=== PATIENT | male | born 1995 ===

== ENCOUNTER 2023-03-09 12:41 | Outpatient (REF) | payer MEDICAID, OTHER, SELFPAY ==
[2023-03-09 16:48] LABS: Estimated Glomerular Filt Rate > 60
[2023-03-10 08:30] LABS: ~HepC Num1 0.07 S/CO (0.00-0.79); ~Hepatitis C Antibody Nonreactive (Nonreactive)
[2023-03-12 16:33] LABS: HIV RNA PCR Qn Copies NOT DETECTED copies/mL (NOT DETECTED); HIV RNA PCR Qn Log Copies NOT DETECTED (NOT DETECTED)
== END 2023-03-09 12:42 | disposition home or self-care (01) ==
LOC: HO.HHCL 12:41
PROVIDERS: Visit Provider Nurse Practitioner Primary Care
DX: Z11.3 Encounter for screening for infections with a predominantly sexual mode of transmission (principal)
CPT/HCPCS: 36415; 82565; 86803; 87536

== ENCOUNTER 2023-06-15 12:10 | Outpatient (REF) | payer MEDICAID, OTHER, SELFPAY ==
[2023-06-15 14:04] LABS: Alanine Aminotransferase 27 U/L (0-40); Albumin Level 4.7 g/dL (3.5-5.0); Alkaline Phosphatase 89 U/L (39-117); Anion Gap 14 (12-20); Aspartate Amino Transferase 29 U/L (5-37); Bilirubin Direct 0.2 mg/dL (0.0-0.5); Bilirubin Total 1.1 mg/dL (0.0-1.0); Blood Urea Nitrogen 13 mg/dL (9-16); Calcium 8.8 mg/dL (8.4-10.2); Carbon Dioxide 26 mmol/L (22-29); Chloride 104 mmol/L (96-108); Cholesterol 242 mg/dL (<200); Estimated Glomerular Filt Rate > 60; Glucose Random 94 mg/dL (60-115); HDL Cholesterol 37 mg/dL (>40); LDL Cholesterol Calculated 153 mg/dL (<100); Potassium 4.4 mmol/L (3.3-5.1); Sodium 140 mmol/L (135-145); Total Protein 8.3 g/dL (6.5-8.0); Triglycerides 262 mg/dL (<150)
[2023-06-15 14:13] LABS: HIV AB/AG Nonreactive (Nonreactive); HIV Num 1 0.07 S/CO (0.00-0.99)
== END 2023-06-15 12:11 | disposition home or self-care (01) ==
LOC: HO.HHCL 12:10
PROVIDERS: Visit Provider Nurse Practitioner Primary Care
DX: F64.9 Gender identity disorder, unspecified (principal); E78.5 Hyperlipidemia, unspecified; Z79.899 Other long term (current) drug therapy
CPT/HCPCS: 36415; 80048; 80061; 80076; 87389

== ENCOUNTER 2025-04-13 09:58 | Emergency (ER) | payer OTHER, SELFPAY ==
--- NOTE | ~2025-04-13 | CT_ITS ---
EXAMINATION: CT ABDOMEN AND PELVIS WITH CONTRAST CLINICAL INFORMATION: Diarrhea, fevers, bloody stool, diffuse abdominal pain. COMPARISON: None available. TECHNIQUE: Multidetector volumetric images were obtained from the superior aspect of the liver through the pubic symphysis following administration 65 mL of Omnipaque 350 intravenous contrast. Sagittal and coronal reformatted images were obtained on the technologist's workstation. Oral contrast: No This CT examination was performed using dose optimization techniques as appropriate, variously including the following: *Automated exposure control *Adjustment of mA and/or kV according to patient size (this includes techniques or standardized protocols for targeted exams where dose is matched to indication/reason for exam; i.e. extremities or head) *Use of iterative reconstruction technique FINDINGS: LUNG BASES: The imaged lung bases are clear bilaterally. Heart size is normal. There are no effusions. LIVER, GALLBLADDER, AND BILIARY TREE: The liver is normal in size, shape, and attenuation. No focal hepatic lesion or biliary ductal dilatation is present. The gallbladder is unremarkable with no evidence of radiopaque gallstones, gallbladder wall thickening, or obvious pericholecystic inflammatory changes. PANCREAS: Unremarkable. SPLEEN: Unremarkable. ADRENAL GLANDS: Unremarkable. KIDNEYS AND URETERS: The kidneys are normal in size, shape, and attenuation. No hydronephrosis, hydroureter, or calculi seen. No perinephric stranding. BLADDER: Unremarkable. GASTROINTESTINAL TRACT: Diffuse wall thickening and mild inflammation of fairly large segment of mid and distal small bowel extending to the ileocecal valve, consistent with enteritis. This likely infectious or inflammatory. No definite involvement of the colon which appears normal in course and caliber. No rectal abnormality evident. There is no CT evidence of acute appendicitis. Stomach is mildly decompressed. It appears grossly normal. The duodenal sweep appears normal. The jejunum appears normal. PERITONEUM: There is trace free fluid in the pelvis. There is no free air. ABDOMINAL WALL: No hernia identified. There are breasts implants in place. No evidence of complication. LYMPH NODES: There is no abnormal lymphadenopathy present. VASCULAR: Normal. PELVIC VISCERA: The prostate and seminal vesicles are unremarkable. OSSEOUS STRUCTURES: There is no suspicious lytic or blastic bone lesion. Normal appearance. The SI joints appear normal. CT/CT abdomen pelvis w IV con IMPRESSION: 1. Wall thickening and inflammation of the mid and distal small bowel consistent with long segment enteritis. This is likely infectious or inflammatory. 2. There is trace ascites in the pelvis. Electronically signed by: Regan Webb MD 04/13/2025 01:36 PM EDT
[2025-04-13 10:06] VITALS: BP 126/73; PULSE 78; RESP 16; TEMP 36.6; O2SAT 97; BMI 36.0
--- NOTE | 2025-04-13 11:01 | ED_ITS ---
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 They note yesterday diarrhea with some blood in it and and then another episode today. She states this has never happened before, she has no medical problems, no recent travel and no abx use. She states her pain this AM is much more severe. She denies ETOH or drug use. MD elicited complaint: abdominal pain Pertinent past history: none Onset (ago): day(s) (Wednesday) Pain Consistency: constant Location: epigastric Severity: severe Quality: stabbing Radiation: suprapubic Migration to: no migration Exacerbating factors: eating, bowel movement and movement Relieving factors: nothing Context: possible food poisoning Associated symptoms: nausea, vomiting, diarrhea, chills and hematochezia Related Data Previous Rx's ?Medication ?Instructions ?Recorded hydrocodone 5 mg-acetaminophen 325 1 tab PO Q6H PRN pa in #10 tabs 04/13/25 mg tablet ondansetron 4 mg disintegrating 4 mg PO Q8H PRN nausea and 04/13/25 tablet vomiting #20 tabs Allergies Allergy/AdvReac Type Severity Reaction Status Date / Time No Known Allergies Allergy Verified 04/13/25 10:06 Review of Systems Review of Systems Constitutional : No Weight loss, No Fever, pos Chills ENT/Mouth : No sore throat, No Rhinorrhea Eyes: No Swelling, No Redness Cardiovascular : No Chest Pain, No SOB, NoEdema Respiratory : No Cough, No Sputum, No Wheezing Gastrointestinal : Positive Nausea, Positive Vomiting, positive Diarrhea, positive abdominal Pain, pos Hematochezia, No Melena Genitourinary : No Dysuria, No Urinary Frequency, No Hematuria, No Urgency Musculoskeletal : No joint pain, No Myalgias, No Joint Swelling Skin : No Skin Lesions, No rash Neuro : No Weakness, No Numbness, No Dizziness, No Headache All other systems reviewed and are negative. [facility] Past Medical History Attestation statement: The following information was validated with the patient. Source: old records reviewed Medical History [id number] transgender person Social History Social History (Updated 04/13/25 @ 12:09 by Roxanne Jimenez DO) Patient Tobacco Use Status: Never used Tobacco Advance Directives: No Advance Directives Information Provided: Yes Physical Exam ED Vital Signs: Vital Signs - 24 hr 04/13/25 10:06 04/13/25 11:25 04/13/25 11:28 Temperature 97.8 F 98.0 F Pulse Rate 78 70 Respiratory Rate 16 18 16 Blood Pressure 126/73 120/66 Pulse Oximetry 97 97 Oxygen Delivery Method Room Air Room Air 04/13/25 12:00 Temperature 98.0 F Pulse Rate 70 Respiratory Rate 16 Blood Pressure 120/66 Pulse Oximetry 97 Oxygen Delivery Method Room Air BMI result Body Mass Index 36.0 Appearance: Alert. Oriented X3. No acute distress. Eyes: Pupils equal, round and reactive to light. ENT: Pharynx normal. Neck: Normal inspection. Neck supple. CVS: Normal heart rate and rhythm. Pulses normal. Respiratory: No respiratory distress. Breath sounds normal. Abdomen: Soft and moderate diffuse ttp but no rebound Skin: Skin warm and dry. Normal skin color. Extremities: No lower extremity edema. Neuro: Oriented X 3. No motor deficit. No sensory deficit Medical Decision Making Medical Decision Making [facility] Narrative: 30 yo patient otherwise healthy not immunocompromised, no recent travel or abx use, who ate food and then that night started with pain, nausea, with increasing daily pain and 2 episodes of bloody diarrhea other than food exposure no risk factors. Will hydrate, treat with IV morphine for pain, CT scan for colitis. Possible food toxicity, colitis, viral syndrome, PUD, gastritis, pancreatitis. Differential Diagnosis Differential Diagnoses: The differential diagnosis associated with the presentation includes colitis, viral syndrome, food poisoning, gastritis Admission/Observation Consideration of admission/observation: Escalation of care including admission/observation considered VS and labs stable symptoms resolved feels much better will treat as self limiting enteritis given reasons to return Lab Data [facility] Lab Attestation statement: I reviewed the patient's lab results. 04/13/25 11:20 04/13/25 11:20 Labs: Lab Results 04/13/25 Range/Units 11:20 WBC 9.1 (4.8-10.8) X10*3/uL RBC 5.18 (4.60-5.80) X10*6/uL Hgb 15.5 (14.0-18.0) g/dl Hct 45.8 (42.0-52.0) % MCV 88.4 (80.0-98.0) fL MCH 29.9 (27.0-33.0) pg MCHC 33.8 (31.0-36.0) g/dl RDW 12.4 (11.0-16.0) % Plt Count 328 (160-400) X10*3/uL MPV 9.9 (9.4-12.4) fL Immature Gran % (Auto) 0.2 (0.0-0.4) % Neut % (Auto) 82.4 H (45-73) % Lymph % (Auto) 7.7 L (20-40) % [place] % (Auto) 9.4 (2-11) % Eos % (Auto) 0.1 (0-4) % Baso % (Auto) 0.2 (0-2) % Lymph # (Auto) 0.7 L (1.2-4.9) X10*3/uL [place] # (Auto) 0.9 (0.1-1.2) X10*3/uL Eos # (Auto) 0.0 (0.0-0.4) X10*3/uL Baso # (Auto) 0.0 (0.0-0.2) X10*3/uL Abs Immat Gran (auto) 0.02 (0.00-0.03) X10*3/uL Absolute Neuts (auto) 7.5 (2.0-8.3) x10*3/uL Absolute Nucleated RBC 0.000 (0.0-0.012) X10*3/uL Nucleated RBC % (auto) 0.0 (0.0-0.2) /100WBC Sodium 140 (135-145) mmol/L Potassium 3.8 (3.3-5.1) mmol/L Chloride 104 (96-108) mmol/L Carbon Dioxide 25 (22-29) mmol/L Anion Gap 15 (12-20) BUN 13 (9-16) mg/dL Creatinine 1.08 (0.5-1.4) mg/dL Estim Creat Clear Calc 99.5 Estimated GFR > 60 Random Glucose 110 (60-115) mg/dL Calcium 9.2 (8.4-10.2) mg/dL Magnesium 2.1 (1.6-2.6) mg/dL Total Bilirubin 0.7 (0.0-1.0) mg/dL Direct Bilirubin 0.2 (0.0-0.5) mg/dL AST 24 (5-37) U/L ALT 24 (0-40) U/L Alkaline Phosphatase 72 (39-117) U/L Total Protein 7.8 (6.5-8.0) g/dL Albumin 4.8 (3.5-5.0) g/dL Lipase 27 (8-78) U/L Independent Interpretation I performed an independent interpretation of an: CT Scan Radiology Impression Discussion of test interpretation with radiology: I have reviewed the radiologist's reading. Prescription Management I considered prescription management with: Pain Medication and Other Medications Administered Discontinued Medications Generic Name Dose Route Start Last Admin Trade Name Brandi PRN Reason Stop Dose Admin Lactated Ringer's 1,000 mls @ 999 mls/hr 04/13/25 11:00 04/13/25 13:15 Lr IV 04/13/25 12:00 Infused .Q1H1M ONE Infusion Iohexol 100 ml 04/13/25 12:55 04/13/25 12:56 Iohexol 350 Mg/Ml 100 Ml Infus..Btl IV 04/13/25 12:56 85 ml ONCE ONE Administration Morphine Sulfate 4 mg 04/13/25 11:08 04/13/25 11:25 Morphine Sulfate 4 Mg/Ml Cartridge IVPUSH 04/13/25 11:09 4 mg ONCE ONE Administration Protocol Ondansetron HCl 4 mg 04/13/25 11:00 04/13/25 11:24 Ondansetron Hcl 4 Mg/2 Ml Vial IVPUSH 04/13/25 11:01 4 mg ONCE ONE Administration Discharge Plan Discharge Clinical Impression: Nausea vomiting and diarrhea, Bright red rectal bleeding Abdominal pain Qualifiers: Abdominal location: generalized Qualified Code(s): R10.84 - Generalized abdominal pain Instructions: Rectal Bleeding (ED), Acute Nausea and Vomiting (ED), Acute Diarrhea (ED), Abdominal Pain (ED) Additional Instructions: bland diet for 48 hours clear liquids then advance very slowly no motrin, aleve, aspirin, ibuprofen stay hydrated return for fevers, worsening pain, bloody stools, or any other concerns Prescriptions: New hydrocodone-acetaminophen 5-325 mg tablet 1 tab PO Q6H PRN (Reason: pain) Qty: 10 0RF Rx Instructions: partial fill okay; Partial Fill upon patient request. ondansetron 4 mg tablet,disintegrating 4 mg PO Q8H PRN (Reason: nausea and vomiting) Qty: 20 0RF Stand Alone Forms: Work/School Release Print Language: Moldovan
[2025-04-13] MEDS: Lactated Ringers 1,000 ML 999 ML IV (11:24)
[2025-04-13 11:25] VITALS: RESP 18
[2025-04-13 11:27] LABS: MANUAL DIFF FLAG NO
[2025-04-13 11:28] VITALS: BP 120/66; PULSE 70; RESP 16; TEMP 36.7; O2SAT 97
[2025-04-13 11:35] LABS: Hematocrit 45.8 % (42.0-52.0); Hemoglobin 15.5 g/dl (14.0-18.0); Imm Gran Abs Auto 0.02 X10*3/uL (0.00-0.03); Imm Gran Pct Auto 0.2 % (0.0-0.4); Lymphocytes Absolute Auto 0.7 X10*3/uL (1.2-4.9); Mean Corpuscular HGB Conc 33.8 g/dl (31.0-36.0); Mean Corpuscular Hemoglobin 29.9 pg (27.0-33.0); Mean Corpuscular Volume 88.4 fL (80.0-98.0); NRBC Abs Auto 0.000 X10*3/uL (0.0-0.012); NRBC Pct Auto 0.0 /100WBC (0.0-0.2); Platelet Count 328 X10*3/uL (160-400); Red Blood Count 5.18 X10*6/uL (4.60-5.80); White Blood Count 9.1 X10*3/uL (4.8-10.8)
--- OUTSIDE RECORDS SUMMARY | 2025-04-13 11:35 | XMS_ITS | Encounter Summary ---
Author Organization [employer] Address [address] [facility] 7t [place] [address] Care Team Providers Care Maintenance Planner Name Role Phone Donna Mathias Primary Care Provider [phone] Reason for Visit * Reason Comments Med Refill Encounter Details Date Type Department Care Team (Late st Contact Info) Description 03/16/2023 Refill [facility] [address] [place] [address] Lulú Bañuelos CNM [address] [place], [place] [phone] Gender identity disorder Social History Tobacco Use Types Packs/Day Years Used Date Smoking Tobacco: Every Day Cigarettes Smokeless Tobacco: Never Alcohol Use Standard Drinks/Week Comments Yes 0 (1 standard drink = 0.6 oz pur e alcohol) Depression Answer Date Recorded Patient Health Questionnaire-9 Score 0 10/22/2022 Depression Answer Date Recorded Patient Health Questionnaire-2 Score 0 10/22/2022 Sex and Gender Information Value Date Recorded Sex Assigned at Male 06/15/2022 10:37 AM EDT Legal Sex Other 06/15/2022 10:37 AM EDT Gender Identity Transgender Female 06/15/2022 10 :37 AM EDT Sexual Orientation Something else 06/15/2022 10 :37 AM EDT documented as of this encounter Plan of Treatment Not on file documented as of this encounter Visit Diagnoses Diagnosis Gender identity disorder Gender identity disorder in children documented in this encounter Additional Health Concerns Assessment Noted Time PHQ-9 Depression Total Score: 0 10/23/19 23 10:50 AM EST documented as of this encounter Care Teams Maintenance Planner Relationship Specialty Start Date End Date Donna Mathias ANP [address] [place] [address] PCP - General Family Medicine 10/30/20 documented as of this encounter
--- OUTSIDE RECORDS SUMMARY | 2025-04-13 11:35 | XMS_ITS | Encounter Summary ---
Author Organization [employer] Address [address] [facility] [address] [place] [address] Care Team Providers Care Auxiliary Equipment Operator Name Role Phone Donna Mathias Primary Care Provider [phone] Reason for Visit * Reason Onset Date Comments Nurse Triage 04/13/2025 Encounter Details Date Type Department Care Team ([facility] st Contact Info) Description 04/13/2025 Telephone [facility] [address] [place] [address] Donna Mathias ANP [address] [place] [address] Nurse Triage Social History Tobacco Use Types Packs/Day Years Used Date Smoking Tobacco: Every Day Cigarettes Smokeless Tobacco: Never Alcohol Use Standard Drinks/Week Comments Yes 0 (1 standard drink = 0.6 oz pur e alcohol) Depression Answer Date Recorded Patient Health Questionnaire-9 Score 0 10/22/2022 Housing Stability Answer Date Recorded What is your housing situation today? I have rudy khan 05/31/[address] you li ve. Do you have problems with any of the following? None of the above 05/31/2023 Food Insecurity Answer Date Recorded Within the past 12 months, y ou worried that your food would run out before you got money to buy more: Never True 05/31/2023 Within the past 12 months,th e food you bought just didn't last and you didn't have enough money to get more: Never True Transportation Answer Date Recorded In the past 12 months, has l ack of transportation kept you from medical appts, meetings, work or from getting things needed for daily living? No 05/31/2023 Utilities Answer Date Recorded In the past 12 months, has t he electric, gas, oil or water company threatened to shut off services in your home? No 05/31/2023 Depression Answer Date Recorded Patient Health Questionnaire-2 Score 0 10/22/2022 Sex and Gender Information Value Date Recorded Sex Assigned at Male 06/15/2022 10:37 AM EDT Legal Sex Other 06/15/2022 10:37 AM EDT Gender Identity Transgender Female 06/15/2022 10 :37 AM EDT Sexual Orientation Something else 06/15/2022 10 :37 AM EDT documented as of this encounter Miscellaneous Notes * Telephone Encounter - Bela Tenorio RN - 04/13/2025 9:15 AM EDT called pt to triage, spoke to pt through Remote Assistant Data Entry Manager. states 2 days duration of low abdominal pain, nausea, and watery bloody diarrhea. pt states over the last 2 days the pain has worsened andis now severe and unbearable. pt denies known fever, dizziness, feeling like passing out, or severeweakness. pt requesting appt and was advised that there are no appts to schedule in the center today, and with the stated severity of her symptoms/pain she would be best served with an ER evaluation and follow up in the center. pt states feels bad but does not need an ambulance. pt states will shower and call for a ride. advised to call back next week for any follow up needed. pt understands and a grees with plan. pt is responsive and appropriate during this encounter. insurance verified. Protocol Used: Abdominal Pain - Female (Adult) Protocol-Based Disposition: Go to ED Now Positive Triage Questions: * Severe abdominal pain (e.g., excruciating) * Blood in bowel movements (Exception: Blood on surface of BM with constipation.) * All higher-acuity triage questions were negative Care Advice Discussed: * Rest * Drink Clear Fluids * Diet * Avoid Aspirin and NSAIDs * Reasons To Call Back - You become worse * Telephone Encounter - Sancho Tolbert - 04/13/2025 8:44 AM EDT Symptom: Abdominal Pain - Female - Not Outcome: Talk to a nurse or provider within 15 minutes Reason: Blood in the stool (poop) or vomit The caller accepted this outcome. Contact pt at [phone] documented in this encounter Plan of Treatment Not on file documented as of this encounter Visit Diagnoses Not on filedocumented in this encounter Additional Health Concerns Assessment Noted Time PHQ-9 Depression Total Score: 0 10/23/19 23 10:50 AM EST documented as of this encounter Care Teams Auxiliary Equipment Operator Relationship Specialty Start Date End Date Donna Mathias ANP [address] [place] [address] PCP - General Family Medicine 10/30/20 documented as of this encounter
--- OUTSIDE RECORDS SUMMARY | 2025-04-13 11:35 | XMS_ITS | Encounter Summary ---
Author Organization [employer] Address [address] [place] [address] 7[address] [place] [address] Care Team Providers Care Resort Keeper Name Role Phone Donna Mathias Primary Care Provider [phone] Encounter Details Date Type Department Care Team (Late st Contact Info) Description 08/05/2022 Orders Only [facility] [address] [place], [place] [phone] Melodie Nathan LPN Social History Tobacco Use Types Packs/Day Years Used Date Smoking Tobacco: Never Assessed Sex and Gender Information Value Date Recorded Sex Assigned at Male 06/15/2022 10:37 AM EDT Legal Sex Other 06/15/2022 10:37 AM EDT Gender Identity Transgender Female 06/15/2022 10 :37 AM EDT Sexual Orientation Something else 06/15/2022 10 :37 AM EDT documented as of this encounter Plan of Treatment Not on file documented as of this encounter Procedures Procedure Name Priority Date/Time Associated Diagnosis Comments HEPATITIS C ANTIBODY REFLEX Routine 03/09/2023 12:45 PM EDT documented in this encounter Results * Hepatitis C Antibody Reflex (03/09/2023 12:45 PM EDT) Hepatitis C Antibody Nonreactive Nonreactive [facility] Comment:Antibodies to HCV no t detected; does not exclude early acuteHCV infection. 03/09/2023 12:4 5 PM EDT 03/09/2023 4:02 PM EDT us Donna MAJAON LAB BLOOD ORDERABLES Final Resul t [facility] [address] [place] [address] [phone] documented in this encounter Visit Diagnoses Not on filedocumented in this encounter Care Teams Resort Keeper Relationship Specialty Start Date End Date Donna Mathias ANP [address] [place] [address] PCP - General Family Medicine 10/30/20 documented as of this encounter
--- OUTSIDE RECORDS SUMMARY | 2025-04-13 11:36 | XMS_ITS | Encounter Summary ---
Author Organization [employer] [facility] Address [address] [facility] [address] [place] [address] Care Team Providers Care Loan Auditor Name Role Phone Donna Mathias Primary Care Provider [phone] Encounter Details Date Type Department Care Team (Late st Contact Info) Description 09/21/2022 Telephone [facility] [address] [place], [place] [phone] Donna Mathias ANP [address] [place] [address] Social History Tobacco Use Types Packs/Day Years [...] on filedocumented in this encounter Care Teams Loan Auditor Relationship Specialty Start Date End Date Donna Mathias ANP [address] [place] [phone] PCP - General Family Medicine 10/30/20 documented as of this encounter
--- OUTSIDE RECORDS SUMMARY | 2025-04-13 11:36 | XMS_ITS | Encounter Summary ---
Author Organization [employer] Address [address] [place] [address] Care Team Providers Care Earth Science Professor Name Role Phone Donna Mathias Primary Care Provider [phone] Reason for Visit * Reason Onset Date Comments Appointment Request 11/05/2023 Encounter Details Date Type Department Care Team ([facility] st Contact Info) Description 11/05/2023 Telephone [facility] [address] [place] [address] Donna Mathias ANP [address] [place] [address] Appointment Request Social History Tobacco Use Types Packs/Day Years [...] encounter Miscellaneous Notes * Telephone Encounter - Paz Foley RN - 11/08/2023 11:04 AM EDT TC placed to patient and patient began speaking about surgery and an appointment with the surgeon on 11/15/23. Asked for permission to call the patient back with an diplomatic interpreter/translator to better understand alldetails. Patient agreed. TC placed to patient via Graph[employer]ive Extruding Machine Operator, and patient states that actually she is not having surgery on 11/15/23 but just has her first appointment with surgery office for breast surgery. Asked if the office is local in [place], and patient states that she believes it is. Advised patient to please have the surgeon's office contact us directly about any upcoming surgery and the details of a required pre-op appointment. Explained that we will need to know these details,as well as the timing of a planned surgery, in order to correctly schedule a pre-op appointment. Patient expressed understanding. Rescheduled canceled extended follow-up appointment below for 12/29/23 @ 2:30pm with David Mathias. No other questions or concerns at this time. Routing note to PCP so he is aware. Tc from pt requesting a sooner appt then 01/04/24 . States is having a surgery 11/15/23 and would like to be seen in the office before that date . States does not mind seeing a different provider. Appt note ( Follow up in about 3 months (around 09/15/2023) for 30min GAHT. r/s 2/2(Unable to reach for PVP, Screening will need to be completed in office) R/S from 10/31 pcp out ) * Telephone Encounter - Bindu Chavira - 11/05/2023 12:43 PM EDT Tc from pt requesting a sooner appt then 01/04/24 . States is having a surgery 11/15/23 and would like to be seen in the office before that date . States does not mind seeing a different provider. Appt note ( Follow up in about 3 months (around 09/15/2023) for 30min GAHT. r/s 2/2(Unable to reach for PVP, Screening will need to be completed in office) R/S from 10/31 pcp out ) documented in this encounter Plan of Treatment Not on file documented as of this encounter Visit Diagnoses Not on filedocumented in this encounter Additional Health Concerns Assessment Noted Time PHQ-9 Depression Total Score: 0 10/23/19 23 10:50 AM EST documented as of this encounter Care Teams Earth Science Professor Relationship Specialty Start Date End Date Donna Mathias ANP [address] [place] [id number] PCP - General Family Medicine 10/30/20 documented as of this encounter
--- OUTSIDE RECORDS SUMMARY | 2025-04-13 11:36 | XMS_ITS | Clinical Summary ---
Author Organization [employer] Address [address] [place] [address] Care Team Providers Care Digester Operator Name Role Phone Donna Mathias Primary Care Provider [phone] Allergies No known active allergies Medications nicotine polacrilex (Nicorette) 2 MG gum CHEW 1 PIECE IN MOUTH EVERY 2 HOURS NEEDED & DIRECTED 2 Active Syringe/Needle, Disp, (B-D 3CC LUER-VERNA SYR 22GX1 ) 22G X 1 3 ML miscIndications: Gender dysphoria USE TO INJECT EVERY WEEK DIRECTED 12 each 3 3 Active Needle, Disp, (BD Hypodermic Needle) 18G X 1 miscIndications: Gender dysphoria Use once weekly to draw up medication, not for injecting 12 each 3 Active Alcohol Swabs padsIndications: Gender dysphoria 1 each if needed (to clean skin). 100 each 11 3 Active spironolactone (Aldactone) 50 MG tabletIndication s:Gender dysphoria Take 1 tablet (50 mg) by mouth 2 times daily. 180 tablet 3 Active Needle, Disp, (BD Disp [place]) 25G X 5/8 miscIndications: Gender dysphoria Use to inject estradiol weekly or every other week 12 each 3 3 Active Syringe, Disposable, (B-D SYRINGE LUER-VERNA 3CC) 3 ML miscIndications: Gender dysphoria Use to inject estradiol once weekly or every other week 12 each 3 3 Active atorvastatin (Lipitor) 10 MG tabletIndication s:Dyslipidemia Take 1 tablet daily 90 tablet 1 4 Active estradiol (Estrace) 2 MG tabletIndication s:Gender dysphoria 1 tab twice daily under tongue 60 tablet 2 4 Active emtricitabine-te nofovir DF (Truvada) 200-300 MG tabletIndication s:Sexually transmitted disease exposure Take 1 tablet by mouth Once daily. 90 tablet 4 Active Active Problems Problem Noted Date Diagnosed Date On pre-exposure prophylaxis for HIV 09/07/2023 Overview (09/17/2023): Truvada over descovy d/t dyslipidemia. Has not had immune response to hep B Vaccine. Gender dysphoria 10/22/2022 Sexually transmitted disease exposure 10/22/2022 Overview (10/22/2022): Truvada as PrEP, follows w/ PrEP Navigator Dyslipidemia 03/27/2022 History of syphilis 10/24/2021 Overview (09/17/2023): Treated for syphilis 10/2021 w/ 3x Bicillin 2.4 million units, RPR titer 1:2. Was treated per [facility] recommendation as no record of previous treatment though we were able to locate RPR in 2019 w/ titer 1:8. Encounters Date Type Department Care Team Description 04/13/2025 Telephone [facility] [address] [place] [address] [phone] Donna Mathias, MELECIO Nurse Triage from Last 3 Months Immunizations Immunization Administration Dates Next Due HPV 9-Valent 10/28/2021,03/27/2021,11/27/2020 Hep B, adult 10/28/2021,03/27/2021,11/27/2020 HepB-CpG 03/27/2022,02/24/2022 Influenza injectable quadriv alent preservative free 06/15/2023,10/22/2022,10/22/2021 Moderna Covid-19 Vaccine 12+ 10/22/2021,01/08/20 21,12/08/2020 Moderna Covid-19 Vaccine 6+ Bivalent 10/22/2022 Tdap 03/27/2021 Social History Tobacco Use Types Packs/Day Years Used Date Smoking Tobacco: Every Day Cigarettes Smokeless Tobacco: Never Tobacco Cessation:Ready to Q uit: Not Asked; Counseling Given: Not Answered Alcohol Use Standard Drinks/Week Comments Yes 0 [...] Something else 06/15/2022 10 :37 AM EDT Last Filed Vital Signs Vital Sign Reading Time Taken Comments Blood Pressure 137/79 06/15/2023 11:03 AM EDT Pulse 62 06/15/2023 11:03 AM EDT Temperature - - Respiratory Rate 20 06/15/2023 11:03 AM EDT Oxygen Saturation - - Inhaled Oxygen Concentration - - Weight 98 kg (216 lb) 06/15/2023 11:03 AM EDT Height 162.6 cm (5' 4 ) 06/15/2023 11:03 AM EDT Body Mass Index 37.08 06/15/2023 11:03 AM EDT Plan of Treatment Health Maintenance Due Date Last Done Comments Disability Screening 1994 Alcohol/Substance Use Screening 2006 Family Planning (PISQ) 2009 Pneumococcal Vaccine: Pediatrics (0 to 5 Years) and At-Risk Patients (6 to 49) Years (1 of 2 - PCV) 2013 Depression Screening 10/23/2023 10/22/2022, 10/23/19 23 SDOH Screening 10/23/2023 10/22/2022 COVID-19 Vaccine ( - season) 2024 10/22/2022, 10/22/2021, 01/07/2021, Additional history exists Tobacco Screening 06/15/2024 06/15/2023 Influenza Vaccine (#1) 2025 , 10/22/2022, 10/22/2021 DTaP/Tdap/Td Vaccines (2 - Td or Tdap) 03/27/2031 03/27/2021 Zoster Vaccines (1 of 2) 2044 RSV Patients and Patients Aged 60 years or older (1 - 1-dose 75+ series) 2069 HPV Vaccines Completed 10/28/2021, 03/16, 11/27/2020 Hepatitis B Vaccines Completed 03/27/2022, 02/24/2022, 10/28/2021, Additional history exists Hepatitis C Screening Completed 03/09/2023 , 02/13/2022, 10/22/2021, Additional history exists HIV Screening Completed 06/15/2023, 02/14, 10/22/2022, Additional history exists HIB Vaccines Aged Out No longer eligi ble based on patient's age to complete this topic Hepatitis A Vaccines Aged Out No long er eligible based on patient's age to complete this topic IPV Vaccines Aged Out No longer eligi ble based on patient's age to complete this topic Meningococcal B Vaccine Aged Out No l onger eligible based on patient's age to complete this topic Meningococcal Vaccine Aged Out No veronica bing eligible based on patient's age to complete this topic RSV under 20 months Aged Out No longe r eligible based on patient's age to complete this topic Rotavirus Vaccines Aged Out No longer eligible based on patient's age to complete this topic Procedures Procedure Name Priority Date/Time Associated Diagnosis Comments HIV ANTIBODY/ANTIGEN ([facility]) Routine 06/15/2023 12:13 PM EDT HEPATITIS C ANTIBODY REFLEX Routine 03/09/2023 12:45 PM EDT from Last 3 Months or Most Recently Relevant to Health Maintenance Results * HIV Ab/Ag (MARY JO JO) (06/15/2023 12:13 PM EDT) HIV AB/AG Nonreactive Nonreactive [facility] Comment:HIV-1 p24 Ag and/or HIV-1/HIV-2 Ab not detected.A test result that is nonreactive does not exclude thepossibility of exposure to or infection with HIV-1 and/orHIV-2. Nonreactive results in this assay for individualswith prior exposure to HIV-1 and/or HIV-2 may be due toantigen and antibody levels that are below the limit ofdetection of this assay.The [employer] HIV Ag/Ab Combo assay result andsupplemental assay results should be interpreted inconjunction with the patient's clinical presentation,history and other laboratory results. If the results areinconsistent with clinical evidence, additional testing issuggested to confirm the result. 06/15/2023 12:1 3 PM EDT 06/15/2023 1:17 PM EDT us Donna Mathias ANP LAB BLOOD ORDERABLES Final Resul t Performing Organization Address [facility]/ZIP Co de Phone Number [facility] [address] [place] [phone] Hepatitis C Antibody Reflex (03/09/2023 12:45 PM EDT) Hepatitis C Antibody Nonreactive Nonreactive [facility] Comment:Antibodies to HCV no t detected; does not exclude early acuteHCV infection. 03/09/2023 12:4 5 PM EDT 03/09/2023 4:02 PM EDT us Donna Mathias ANP LAB BLOOD ORDERABLES Final Resul t [facility] [address] [place] [phone] from Last 3 Months or Most Recently Relevant to Health Maintenance Insurance [facility] Care Teams Digester Operator Relationship Specialty Start Date End Date Donna Mathias ANP [address] [place] [phone] PCP - General Family Medicine 10/30/20
[2025-04-13 11:51] LABS: Alanine Aminotransferase 24 U/L (0-40); Albumin Level 4.8 g/dL (3.5-5.0); Alkaline Phosphatase 72 U/L (39-117); Anion Gap 15 (12-20); Aspartate Amino Transferase 24 U/L (5-37); Blood Urea Nitrogen 13 mg/dL (9-16); Calcium 9.2 mg/dL (8.4-10.2); Carbon Dioxide 25 mmol/L (22-29); Chloride 104 mmol/L (96-108); Creatinine Clr Calc Pharmacy 99.5; Estimated Glomerular Filt Rate > 60; Lipase 27 U/L (8-78); Magnesium 2.1 mg/dL (1.6-2.6); Potassium 3.8 mmol/L (3.3-5.1); Sodium 140 mmol/L (135-145); Total Protein 7.8 g/dL (6.5-8.0)
[2025-04-13 12:00] VITALS: BP 120/66; PULSE 70; RESP 16; TEMP 36.7; O2SAT 97
[2025-04-13] MEDS: iohexoL 350 MG/ML 100 ML INFUS..BTL IV (12:56)
[2025-04-13 13:58] VITALS: BP 117/79; PULSE 73; RESP 16; TEMP 36.7; O2SAT 98
[2025-04-13 14:05] VITALS: BP 117/79; PULSE 73; RESP 16; TEMP 36.7; O2SAT 98
== END 2025-04-13 14:05 | disposition home or self-care (01) ==
PROVIDERS: Emergency Provider Emergency Medicine; PCP Nurse Practitioner Primary Care
DX: R11.2 Nausea with vomiting, unspecified (principal); K62.5 Hemorrhage of anus and rectum; R10.9 Unspecified abdominal pain; R19.7 Diarrhea, unspecified
CPT/HCPCS: 36415; 74177; 80048; 80076; 83690; 83735; 85025; 96361; 96374; 96375; 99284; 99285; J2270; J2405; J7120; Q9967

== ENCOUNTER → 2025-04-13 11:27 | Outpatient (BNV) | payer OTHER, SELFPAY | PROVIDERS: Emergency Provider Emergency Medicine; PCP Nurse Practitioner Primary Care; Visit Provider Radiology Diagnostic Radiology | DX: K63.89 Other specified diseases of intestine (principal) | CPT/HCPCS: 74177 ==